=== PATIENT | male | born 1995 | race Caucasian/White ===

== ENCOUNTER 2021-11-08 10:08 | Emergency (ER) | payer OTHER ==
[~2021-11-08] VITALS: Ht 170.2 cm; Wt 99.5 kg
[2021-11-08 11:00] VITALS: BP 168/87
--- NOTE | 2021-11-08 12:16 | RAD ---
Exam Date: 11/08/2021 12:01 PM XR SHOULDER_LEFT 2+ VIEWS Indication: Reason: left shoulder pain after electrocution / Spl. Instructions: / History: . FINDINGS/ IMPRESSION: No acute fracture or dislocation. Alignment and joint spaces are maintained. The soft tissues are w ithin normal limits. Electronically signed by: Piyush Mccoy MD (11/08/2021 12:14 PM) [facility]
--- NOTE | 2021-11-08 13:14 | PHYS DOC ---
Past Medical History Past Surgical History: No Surgical History General Adult EDM: Chief Complaint: SHOUDLER HPI: HPI: Patient is a 26 year old male who presents with left shoulder pain after being electrocuted with a commercial building electrical outlet. Patient is an qualified craft worker electrician. Patient was grounded. Patient states that he was electrocuted for less than a second but fell on his left shoulder as he caught himself with his shoulders while he was on a ladder. Patient states that he feels fine and feels well. However he has some left shoulder pain and is unable to abduct the shoulder above the level of the scapula due to pain. Able to passively move above level of scapula otherwise patient states that the pain is quite mild if he does not abduct it. He feels well otherwise. Review of Systems: Review of Systems: Constitutional: Denies fever or chills. [] Eyes: Denies change in visual acuity. [] HENT: Denies nasal congestion or sore throat. [] Respiratory: Denies cough or shortness of breath. [] Cardiovascular: Denies chest pain or edema. [] GI: Denies abdominal pain, nausea, vomiting, bloody stools or diarrhea. [] : Denies dysuria. [] Musculoskeletal: Positive left shoulder pain. [] Integument: Denies rash. [] Neurologic: Denies headache, focal weakness or sensory changes. [] Endocrine: Denies polyuria or polydipsia. [] Lymphatic: Denies swollen glands. [] Psychiatric: Denies depression or anxiety. [] Heart Score: C/O Chest Pain: No Risk Factors: Risk Factors: DM, Current or recent (<one month) smoker, HTN, HLP, family history of CAD, obesity. Risk Scores: Score 0 - 3: 2.5% MACE over next 6 weeks - Discharge Home Score 4 - 6: 20.3% MACE over next 6 weeks - Admit for Clinical Observation Score 7 - 10: 72.7% MACE over next 6 weeks - Early Invasive Strategies Physical Exam: PE: Constitutional: Well developed, well nourished, no acute distress, non-toxic appearance. [] HENT: Normocephalic, atraumatic, bilateral external ears normal, oropharynx moist, no oral exudates, nose normal. [] Eyes: PERRLA, EOMI, conjunctiva normal, no discharge. [] Neck: Normal range of motion, no tenderness, supple, no stridor. [] Cardiovascular:Heart rate regular rhythm, no murmur [] Lungs & Thorax: Bilateral breath sounds clear to auscultation [] Abdomen: Bowel sounds normal, soft, no tenderness, no masses, no pulsatile masses. [] Skin: Warm, dry, no erythema, no rash. [] Back: No tenderness, no CVA tenderness. [] Extremities: No tenderness, no cyanosis, no clubbing, ROM intact, no edema. Positive left shoulder pain with active abduction above 90 degrees. [] Neurologic: Alert and oriented X 3, normal motor function, normal sensory function, no focal deficits noted. [] Psychologic: Affect normal, judgement normal, mood normal. [] Current Patient Data: Vital Signs: Vital Signs Date Time Temp Pulse Resp B/P (MAP) Pulse Ox O2 Delivery O2 Flow Rate FiO2 11/08/21 11:00 98.3 85 18 168/87 (114) 95 Room Air 98.3 EKG: EKG: [] Radiology/Procedures: Radiology/Procedures: Left shoulder no acute process [] Impression: 26-year-old male with left shoulder, now with pain. X-ray normal. Patient is diagnosed with left shoulder strain. Course & Med Decision Making: Course & Med Decision Making Pertinent Labs and Imaging studies reviewed. (See chart for details) I spoke with patient, patient is stable and doing well right now. No emergent need. Patient will likely need to follow-up with primary care physician. This is likely a left shoulder strain, however there is a possibility that this is a labrum tear. Since this incident happened very recently, I will have him take NSAIDs at home and follow-up with his primary care physician. Likely pathology will clear up with a few days of rest. Patient may need more advanced imaging, I will defer to the primary care physician for this. All questions answered, patient stable time of discharge. Scottie Disclaimer: Scottie Disclaimer: This electronic medical record was generated, in whole or in part, using a voice recognition dictation system. Departure Departure Impression: Primary Impression: Left shoulder pain Disposition: HOME / SELF CARE / HOMELESS Condition: GOOD Patient Instructions: Joint Sprain Additional Instructions: Follow-up with your primary care physician this week. I have given you this wee k off of work. You may take 400 to 600 mg of ibuprofen every 8 hours as well as 1000 mg of Tylenol every 8 hours for pain relief and inflammation relief. HERI MARC MD Nov 08, 2021 13:14
--- NOTE | 2021-11-08 15:45 | EKG ---
[facility] [address] [place] [address] Test Date: 2021-11-08 Test Time: 12:04:48 Pat Name: SAMIA SEGOVIA Department: Room: Gender: M Is Analyst: : 1995 Requested By: HERI Jarvis Number: [id number] Reading MD: Diony Rahman Measurements Intervals [place] Rate: 79 P: 52 FL: 140 QRS: 50 QRSD: 114 T: 68 QT: 350 QTc: 407 Interpretive Statements SINUS RHYTHM Electronically Signed On 11-10-2021 18:19:41 CDT by Diony Rahman
== END 2021-11-08 13:10 | disposition home or self-care (01) ==
LOC: ER 10:08
DX: M25.512 Pain in left shoulder (principal)
CPT/HCPCS: 73030; 93005; 99283